=== PATIENT | male | born 1980 | race Caucasian/White ===

== ENCOUNTER 2020-06-17 14:00 | Emergency (ER) | payer OTHER, SELFPAY ==
[2020-06-17 14:10] VITALS: BP 123/69; PULSE 76; RESP 20; TEMP 36.8; O2SAT 99
--- NOTE | 2020-06-17 14:30 | ED.GENADULT ---
HPI - General Adult General Chief complaint: Unspecified <VIRIDIANA Maxwell Last Filed: 06/17/20 15:42> Stated complaint: dizzy/vomiting x 1.5 mo/weakness <VIRIDIANA Maxwell Last Filed: 06/17/20 15:42> Time Seen by Provider: 06/17/20 14:15 <VIRIDIANA Maxwell Last Filed: 06/17/20 15:42> Source: patient and family <VIRIDIANA Maxwell Last Filed: 06/17/20 15:42> Mode of arrival: ambulatory <VIRIDIANA Maxwell Last Filed: 06/17/20 15:42> Limitations: no limitations <VIRIDIANA Maxwell Last Filed: 06/17/20 15:42> History of Present Illness HPI narrative: Patient is a 47-year-old male who presents to emergency department for evaluation of intermittent nausea and vomiting over the course of the last month patient denies any pain or similar occurrence in the past has not been seen for this complaint on arrival is in the room in no distress has not taken anything for his symptoms has seen primary care for this complaint has not taken anything for his symptoms <VIRIDIANA Maxwell Last Filed: 06/17/20 15:42> Related Data Home medications: Home Medications Medication Instructions Recorded Confirmed aspirin 81 06/17/20 atorvastatin 80 06/17/20 buspirone 5 mg 06/17/20 carvedilol 6.25 06/17/20 clopidogrel 75 06/17/20 isosorbide mononitrate 60 mg PO 06/17/20 lisinopril 5 06/17/20 <VIRIDIANA Maxwell Last Filed: 06/17/20 15:42> Allergies/adverse reactions: Allergies Allergy/AdvReac Type Severity Reaction Status Date / Time No Known Allergies Allergy Verified 06/17/20 14:17 <VIRIDIANA Maxwell Last Filed: 06/17/20 15:42> Review of Systems Review of Systems: All systems reviewed & are unremarkable except as noted in HPI and below <VIRIDIANA Maxwell Last Filed: 06/17/20 15:42> PMFSH Past Medical History Medical History: Medical History (Updated 06/17/20 @ 15:41 by Eric Waldron PA-C) Coronary artery disease <Eric Waldron PA-C - Last Filed: 06/17/20 15:42> Surgical History Surgical History: Surgical History (Updated 06/17/20 @ 14:33 by Eric Waldron PA-C) History of coronary artery stent placement <Eric Waldron PA-C - Last Filed: 06/17/20 15:42> Social History Social History: Social History (Updated 06/17/20 @ 14:34 by Eric Waldron PA-C) Smoking status: Current every day smoker Gender identity (if verbalized by the patient): Male <Eric Waldron PA-C - Last Filed: 06/17/20 15:42> Exam Narrative: Exam Narrative: GENERAL: Well-appearing, well-nourished, and in no acute distress. HEAD: Normocephalic, atraumatic. EYES: PERRLA and EOMI. ENT: Nares clear, no rhinorrhea or epistaxis. Mucous membranes moist. CHEST: Clear to auscultation. No respiratory distress. No wheezes rales or rhonchi HEART: Regular rate and rhythm. No murmur heard. Normal peripheral pulses. ABDOMEN: Soft, nontender, nondistended EXTREMITIES: Normal range of motion. No edema. SKIN: Warm, dry, no rash. NEURO: No focal deficits. Alert and oriented x3. PSYCH: Normal mood and affect. <Eric Waldron PA-C - Last Filed: 06/17/20 15:42> Course Course Emergency Course: Patient in the room in no distress aware of case findings treatment plan and diagnosis agreeing to follow-up as directed or to return if symptoms worsen or concerns. Patient without high risk changes in the blood work given medications with relief will be given a GI consult as well as advised to follow primary care and given reasons to return <Eric Waldron PA-C - Last Filed: 06/17/20 15:42> Vital Signs Vital signs: Vital Signs Temperature 98.2 F 06/17/20 14:10 Pulse Rate 76 06/17/20 14:10 Respiratory Rate 20 06/17/20 14:10 Blood Pressure 123/69 06/17/20 14:10 Pulse Oximetry 99 06/17/20 14:10 Temperature 98.2 F 06/17/20 14:10 Pulse Rate 76 06/17/20 14:10 Re
[2020-06-17 14:41] LABS: Basophils Absolute Auto 0.1 K/mm3 (0.0-0.1); Basophils Percent Auto 1.2 % (0.2-1.2); Eosinophils Absolute Auto 0.4 K/mm3 (0-0.3); Eosinophils Percent Auto 6.1 % (0-4.4); Hematocrit 41.6 % (42.0-52.0); Immature Granulocyte Absolute 0.02 K/mm3 (0.00-0.031); Immature Granulocyte Percent A 0.3 % (0-0.5); Lymphocytes Absolute Auto 2.71 K/mm3 (0.9-3.2); Lymphocytes Percent Auto 39.1 % (18.3-44.2); Mean Corpuscular HGB Conc 33.7 g/dl (32-36); Mean Corpuscular Hemoglobin 28.2 pg (26-34); Mean Corpuscular Volume 83.7 fl (80-100); Mean Platelet Volume 9.1 fl (7.4-10.4); Monocytes Absolute Auto 0.5 K/mm3 (0.1-0.6); Monocytes Percent Auto 6.5 % (2.6-8.5); Neutrophils Absolute Auto 3.3 K/mm3 (1.3-6.7); Neutrophils Percent Auto 46.8 % (45.5-73.1); Platelet Count Result 306 k/mm3 (150-375); Red Blood Count 4.97 M/mm3 (4.6-6.20); Red Cell Distribution Width 12.5 % (11.5-14.5); White Blood Count 6.9 K/mm3 (4.5-10.0)
--- NOTE | 2020-06-17 14:44 | ECG_ITS ---
Measurements Intervals [place] Rate: 61 P: 66 [place]: 131 QRS: 71 QRSD: 92 T: 53 QT: 401 QTc: 407 Interpretive Statements SINUS RHYTHM WITH SINUS ARRHYTHMIA EARLY PRECORDIAL R/S TRANSITION BORDERLINE ECG Electronically Signed On 06-18-2020 10:02:45 CDT by Jose Thompson D.O.
[2020-06-17] MEDS: ONDANSETRON INJ 4 MG/2 ML VIAL IV PUSH (14:51)
[2020-06-17] MEDS: SODIUM CHLORIDE 0.9% IV 1,000 ML 999 ML IV CONT (14:51)
[2020-06-17] MEDS: FAMOTIDINE 20 MG/2 ML VIAL IV PUSH (14:51)
[2020-06-17 14:53] LABS: Alanine Aminotransferase 17 U/L (4-50); Albumin Level 4.4 g/dL (3.5-5.1); Alkaline Phosphatase 110 U/L (38-126); Anion Gap 12.9 mmol/L (7-16); Aspartate Amino Transferase 21 U/L (17-59); Bilirubin,Total 0.5 mg/dL (0.2-1.3); Blood Urea Nitrogen 20 mg/dL (9-20); Carbon Dioxide 28 mmol/L (22-30); Chloride 102 mmol/L (98-107); Estimated CRCL calculation 101 ml/min; Estimated Glomerular Filt Rate > 60; Glucose 122 mg/dL (75-110); Lipase 39 U/L (23-300); Potassium 3.9 mmol/L (3.4-5.0); Sodium 139 mmol/L (137-145)
== END 2020-06-17 15:57 | disposition home or self-care (01) ==
PROVIDERS: Emergency Medicine Emergency Medical Services; Emergency Provider General Practice; PCP Family Medicine
DX: R11.2 Nausea with vomiting, unspecified (principal); I25.10 Atherosclerotic heart disease of native coronary artery without angina pectoris; Z95.5 Presence of coronary angioplasty implant and graft; Z79.82 Long term (current) use of aspirin; F17.200 Nicotine dependence, unspecified, uncomplicated; R94.31 Abnormal electrocardiogram [ECG] [EKG]
CPT/HCPCS: 36415; 80053; 83690; 85025; 93005; 96361; 96374; 96375; 99284; J2405; J7030

== ENCOUNTER 2020-08-01 15:28 | Observation (INO) | payer OTHER, SELFPAY ==
[2020-08-01] VITALS (7 sets, daily range): BP systolic 121–154; BP diastolic 74–87; PULSE 57–79; RESP 16–20; TEMP 36.6–36.8; O2SAT 98–100; BMI 25.9
--- NOTE | ~2020-08-01 | XR_ITS ---
EXAMINATION: XR chest 2V EXAM DATE: 08/01/2020 17:08 INDICATION: Sharp left-sided chest pain and history myocardial infarction. Stent placement. TECHNIQUE: Frontal and lateral projections of the chest obtained and reviewed. Comparison is made to prior examination from 10/08/2015. FINDINGS: Moderate hyperinflation. The lungs are clear. There are no pleural effusions. The cardio mediastinal silhouette is within normal limits. There is no pneumothorax suspected. The bones and s oft tissues are unremarkable. There is no significant interval change. IMPRESSION: No acute cardiopulmonary findings. Reviewed, dictated and finalized at location A.
--- NOTE | 2020-08-01 15:47 | ECG_ITS ---
Measurements Intervals [place] Rate: 81 P: 75 [place]: 134 QRS: 78 QRSD: 98 T: 52 QT: 351 QTc: 409 Interpretive Statements SINUS RHYTHM EARLY PRECORDIAL R/S TRANSITION MINIMAL Q WAVES- INFERIOR LEADS BORDERLINE ECG Electronically Signed On 08-01-2020 16:04:29 CDT by Jose Thompson D.O.
[2020-08-01 16:11] LABS: Basophils Absolute Auto 0.1 K/mm3 (0.0-0.1); Basophils Percent Auto 0.9 % (0.2-1.2); Eosinophils Absolute Auto 0.6 K/mm3 (0-0.3); Eosinophils Percent Auto 6.1 % (0-4.4); Hematocrit 38.7 % (42.0-52.0); Hemoglobin 13.1 g/dL (14.0-18.0); Immature Granulocyte Absolute 0.02 K/mm3 (0.00-0.031); Immature Granulocyte Percent A 0.2 % (0-0.5); Lymphocytes Absolute Auto 3.98 K/mm3 (0.9-3.2); Lymphocytes Percent Auto 43.4 % (18.3-44.2); Mean Corpuscular HGB Conc 33.9 g/dl (32-36); Mean Corpuscular Hemoglobin 28.1 pg (26-34); Mean Platelet Volume 8.7 fl (7.4-10.4); Monocytes Absolute Auto 0.7 K/mm3 (0.1-0.6); Monocytes Percent Auto 7.3 % (2.6-8.5); Neutrophils Absolute Auto 3.9 K/mm3 (1.3-6.7); Neutrophils Percent Auto 42.1 % (45.5-73.1); Platelet Count Result 349 k/mm3 (150-375); Red Blood Count 4.66 M/mm3 (4.6-6.20); Red Cell Distribution Width 12.7 % (11.5-14.5); White Blood Count 9.2 K/mm3 (4.5-10.0)
[2020-08-01 16:21] LABS: INR 0.9
[2020-08-01 16:22] LABS: Partial Thromboplastin Time 27.3 SECONDS (22.3-36.8)
[2020-08-01 16:27] LABS: Anion Gap 9 mmol/L (8-16); Blood Urea Nitrogen 15 mg/dL (9-20); Calcium 9.2 mg/dL (8.4-10.2); Carbon Dioxide 25 mmol/L (22-30); Chloride 102 mmol/L (98-107); Estimated CRCL calculation 124 ml/min; Estimated Glomerular Filt Rate > 60; Glucose 103 mg/dL (75-110); Potassium 3.8 mmol/L (3.4-5.0); Sodium 136 mmol/L (137-145)
[2020-08-01 16:38] LABS: Troponin I < 0.012 ng/mL (0.000-0.034)
--- NOTE | 2020-08-01 17:18 | ED.CHESTPAIN ---
HPI - Chest Pain General Chief Complaint: Chest Pain Stated Complaint: CP Time Seen by Provider: 08/01/20 17:15 Source: RN notes reviewed History of Present Illness HPI narrative: Patient presents emergency department from home for chest pain. 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 Patient states he took a nitro at that time with resolution of his pain. States a history of previous LA and currently had a stent placed 2 years ago. States he used to see Dr. 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 He denies any fevers or chills shortness of breath abdominal pain nausea vomiting or any other symptoms Related Data Home Medications Medication Instructions Recorded Confirmed aspirin 81 06/17/20 atorvastatin 80 06/17/20 buspirone 5 mg 06/17/20 carvedilol 6.25 06/17/20 clopidogrel 75 06/17/20 isosorbide mononitrate 60 mg PO 06/17/20 lisinopril 5 06/17/20 famotidine [Pepcid] 20 mg PO BID 08/01/20 Allergies Allergy/AdvReac Type Severity Reaction Status Date / Time No Known Allergies Allergy Verified 08/01/20 15:53 Review of Systems Review of Systems: Narrative: Gen.: Denies fevers or chills ENT: Denies congestion Respiratory: Denies shortness of breath or cough CV: See HPI GI: Denies abdominal pain nausea, emesis or diarrhea Musculoskeletal: Denies back pain or muscle pain Neuro: Denies numbness, tingling, weakness or focal weakness Skin: Denies rash Except as documented, all other systems reviewed and negative [facility] Past Medical History Medical History (Updated 08/01/20 @ 17:54 by Eliud Farah DO) Coronary artery disease Surgical History Surgical History (Updated 06/17/20 @ 14:33 by Eric Waldron PA-C) History of coronary artery stent placement Social History Social History (Updated 06/17/20 @ 14:34 by Eric Waldron PA-C) Smoking status: Current every day smoker Gender identity (if verbalized by the patient): Female Exam Narrative: Exam Narrative: APPEARANCE: No acute distress, nontoxic, resting in bed EYES: EOMI HEENT: Normocephalic, atraumatic, OMM RESPIRATORY: No respiratory distress Clear to auscultation bilaterally with no rhonchi wheezing or rales. CARDIOVASCULAR: Regular rate and rhythm without murmurs rubs or gallops. ABDOMINAL: Soft, nontender, nondistended, no rebound or guarding MUSCULOSKELETAl: Moves all extremities. No clubbing, cyanosis or edema. NEURO: Awake and alert. Following commands, speech normal, no focal deficits SKIN:: Warm, dry. No rashes lesions or abrasions PSYCHIATRIC: Normal affect/mood, Course Course Emergency Course: Discussed with Dr. Méndez presentation work-up. Agrees with admission of the chest pain center Discussed with patient and family results of workup and diagnosis. Discussed need for admission. Patient and family understand and agree to current treatment plan Vital Signs Vital signs: Vital Signs Temperature 98.3 F 08/01/20 15:48 Pulse Rate 79 08/01/20 15:48 Respiratory Rate 16 08/01/20 15:48 Blood Pressure 131/74 08/01/20 15:48 Pulse Oximetry 99 08/01/20 15:48 Temperature 98.3 F 08/01/20 15:48 Pulse Rate 79 08/01/20 15:48 Respiratory Rate 16 08/01/20 15:48 Blood Pressure 131/74 08/01/20 15:48 Pulse Oximetry 99 08/01/20 15:48 MDM - Chest Pain Lab Data Result diagrams: 08/01/20 16:00 08/01/20 16:00 Labs: Lab Results 08/01/20 08/01/20 08/01/20 Range/Units 16:00 16:00 16:00 WBC 9.2 (4.5-10.0) K/mm3 RBC 4.66 (4.6-6.20) M/mm3 Hgb 13.1 L (14.0-18.0) g/dL Hct 38.7 L (42.0-52.0) % MCV 83.0 (80-100) fl MCH 28.1 (26-34) pg MCHC 33.9 (32-36) g/dl RDW 12.7 (11.5-14.5) % Plt Count 349 (150-375) k/mm3 MPV 8.7 (7.4-10.4) fl Immature Gran % (Auto) 0.2 (0-0.5) % Neut % (Auto) 42.1 L
[2020-08-01 19:12] LABS: Cholesterol 141 mg/dL (0-200); HDL Direct 34 mg/dL; Triglycerides 115 mg/dL (<150)
[2020-08-01 19:22] LABS: LDL Cholesterol Direct 82 mg/dL
[2020-08-01 19:23] LABS: Troponin I < 0.012 ng/mL (0.000-0.034)
--- NOTE | 2020-08-01 20:50 | ECG_ITS ---
Measurements Intervals [place] Rate: 56 P: 61 [place]: 146 QRS: 58 QRSD: 112 T: 70 QT: 418 QTc: 406 Interpretive Statements SINUS BRADYCARDIA RSR' IN V1 OR V2, CONSIDER RIGHT VENTRICULAR HYPERTROPHY OR RIGHT VCD MINIMAL Q WAVES- INFERIOR LEADS BASELINE ARTIFACT- I, II, III, AVL BORDERLINE ECG Electronically Signed On 08-02-2020 7:02:37 CDT by Jose Thompson D.O.
[2020-08-01] MEDS: FAMOTIDINE 20 MG TABLET PO (21:41)
[2020-08-01] MEDS: carvediloL 6.25 MG TABLET PO (21:42)
[2020-08-01 22:25] LABS: Troponin I < 0.012 ng/mL (0.000-0.034)
[2020-08-02] VITALS (7 sets, daily range): BP systolic 121–131; BP diastolic 62–72; PULSE 45–63; RESP 14–15; TEMP 35.9–36.6; O2SAT 98–99
[2020-08-02] MEDS: ATORVASTATIN 40 MG TABLET 80 MG PO (09:43)
[2020-08-02] MEDS: CLOPIDOGREL BISULFATE 75 MG TABLET PO (09:43)
[2020-08-02] MEDS: ASPIRIN 81 MG ENTERIC TABLET PO (09:43)
[2020-08-02] MEDS: lisinopriL 5 MG TABLET PO (09:44)
[2020-08-02] MEDS: ISOSORBIDE MONONITRATE 15 MG TAB.ER.24H PO (09:44)
[2020-08-02] MEDS: FAMOTIDINE 20 MG TABLET PO (09:44)
--- NOTE | 2020-08-02 09:47 | PC.NURSE ---
MORNING COREG DOSE HELD DUE TO HR OF 48. WILL NOTIFY DR. POOL.
--- NOTE | 2020-08-02 10:44 | PC.NURSE ---
DR. POOL HERE TO SEE PT. NOTIFIED OF HELD AM COREG DOSE. ORDERS RECEIVED TO CHECK TROPONIN AND EKG NOW AND REPORT ANY ABNORMALS. CARE COORDINATION HAS BEEN HERE TO SEE PT. HAS SMOKING CESSATION PAPERWORK AT BEDSIDE TABLE. DENIES PAIN OR SOB.
--- NOTE | 2020-08-02 10:53 | PM.IMHP ---
H&P: HPI History of Present Illness Date/Time: date of /10/20 10:53 Chief complaint: chest pain Narrative: Geovanny Gallardo is a 39 year old male with past medical history of heart attack and stents couple years ago [facility], hypertension, active tobacco use and family history for CAD with his dad had open-heart surgery in his 40s who presents with intermittent central chest pain radiating to the left arm, sharp, no aggravating or relieving factors and last for few seconds. Denies shortness of breath, dizziness, fever, chills, nausea, vomiting, cough. States that the pain was relieved by nitroglycerin. He follows up with cardioplegia [facility] and apparently has a stress test and echo sit up in August 2020. Patient states he is under a lot of stress at work because of poor working conditions and he continues to smoke cigarettes. initial EKG shows sinus rhythm small Q-waves in inferior leads. The repeat EKG shows ST elevation in inferior leads. However without any reciprocal changes. All troponins negative. Patient had no recurrence of chest pain. Review of Systems Review of Systems: All systems reviewed & are unremarkable except as noted in HPI and below Constitutional: Constitutional: Denies chills, Denies fatigue, Denies fever(s), Denies headache(s) and Denies snoring Eyes: Eyes: Denies eye discharge and Denies loss of vision ENT: Denies dizziness, Denies headache(s), Denies nasal discharge and Denies sore throat Cardiovascular: Cardiovascular: Reports as per HPI, Reports chest pain, Denies syncope, Denies rapid heart rate, Denies leg edema, Denies dyspnea, Denies dyspnea on exertion, Denies orthopnea and Denies paroxysmal nocturnal dyspnea Respiratory: Respiratory: Denies chest congestion, Denies cough, Denies dyspnea, Denies dyspnea on exertion, Denies snoring and Denies wheezing Gastrointestinal: Gastrointestinal: Denies abdominal pain, Denies diarrhea, Denies nausea and Denies vomiting Genitourinary: Genitourinary: Denies hematuria, Denies dysuria, Denies flank pain and Denies urinary frequency Musculoskeletal: Musculoskeletal: Denies myalgias, Denies arthralgias and Denies joint swelling Neurologic: Denies Abnormal speech present, Denies dizziness, Denies syncope, Denies headache(s), Denies focal weakness and Denies loss of vision Psychiatric: Psychiatric: Denies anxiety and Denies depression Endocrine: Endocrine: Denies cold intolerance, Denies fatigue and Denies heat intolerance Hematologic/Lymphatic: Hematologic/Lymphatic: Denies easy bleeding and Denies easy bruising Allergic/Immunologic: Allergic/Immunologic: Denies urticaria and Denies wheezing PMFSH Past Medical History Medical History Coronary artery disease Surgical History Surgical History History of coronary artery stent placement Family History Family History Father Myocardial infarct Hx of heart artery stent Hx of CABG Social History Social History Smoking packs per day: 1 Smoking cigarettes per day: 20.0 Smoking status: Current every day smoker Tobacco type: cigarettes Second hand tobacco smoke exposure: Yes Alcohol intake: never Substance use: never Substance use type: does not use Living arrangements: with family Additional living arrangements comments: lives with , mother, and children Gender identity (if verbalized by the patient): Male Spiritual care concerns: No Meds Home Medications and Allergies Home Medications Medication Instructions Recorded Confirmed Type aspirin 81 mg PO DAILY 06/17/20 08/01/20 History atorvastatin 80 mg PO DAILY 06/17/20 08/01/20 History buspirone 5 mg PO TID PRN 06/17/20 08/01/20 History carvedilol 6.25 mg PO BID 06/17/20
--- NOTE | 2020-08-02 11:00 | ECG_ITS ---
Measurements Intervals [place] Rate: 54 P: 60 SD: 150 QRS: 65 QRSD: 98 T: 54 QT: 411 QTc: 390 Interpretive Statements SINUS BRADYCARDIA RSR' IN V1 OR V2, CONSIDER RIGHT VENTRICULAR HYPERTROPHY OR RIGHT VCD MINIMAL Q WAVES- INFERIOR LEADS ST ELEVATION IN DIFFUSE LEADS- PROBABLY EARLY REPOLARIZATION BORDERLINE ECG Electronically Signed On 08-02-2020 11:19:42 CDT by Jose Thompson D.O.
[2020-08-02 11:34] LABS: Troponin I 0.014 ng/mL (0.000-0.034)
--- NOTE | 2020-08-02 11:44 | PC.NURSE ---
RESULTS OF TROPONIN AND EKG CALLED TO BRENDAN WARREN NP.
--- NOTE | 2020-08-02 12:20 | PC.NURSE ---
DR. POOL AWARE OF TROPONIN RESULT AND EKG RESULT. ORDERS RECEIVED FOR PT. TO DISCHARGE HOME.
--- NOTE | 2020-08-02 13:00 | PC.NURSE ---
HAS RECEIVED FLU VACCINE Shirley LARSON. REVIEWED ALL DISCHARGE INSTRUCTIONS W/ PT. QUESTIONS ANSWERED AND VOICED UNDERSTANDING OF DISCHARGE INSTRUCTIONS. COPY GIVEN. DENIES CP OR SOB. DISCHARGED HOME, OUT AMBULATORY W/ AT SIDE WITH ALL PERSONAL BELONGINGS AND DISCHARGE PACKET. NO DISTRESS NOTED.
== END 2020-08-02 13:00 | disposition home or self-care (01) ==
LOC: ANHED 18:10 → ANHCPC 20:08
PROVIDERS: Admitting Provider Internal Medicine Cardiovascular Disease; Emergency Provider Emergency Medicine; Visit Provider Internal Medicine Cardiovascular Disease
DX: R07.89 Other chest pain (principal); I25.10 Atherosclerotic heart disease of native coronary artery without angina pectoris; F17.210 Nicotine dependence, cigarettes, uncomplicated; I25.2 Old myocardial infarction; Z23 Encounter for immunization; Z95.5 Presence of coronary angioplasty implant and graft
CPT/HCPCS: 36415; 71046; 80048; 80061; 84484; 85025; 85610; 85730; 90471; 90686; 93005; 99285; A9270; G0008; G0378

== ENCOUNTER 2020-10-03 09:00 | Outpatient (RCR) | payer OTHER, SELFPAY ==
[2020-09-13 12:28] VITALS: PULSE 89
--- NOTE | 2020-09-19 10:36 | PCCPR ---
Addendum entered by Delfina Rosas RN 10/11/20 08:12: 10/08/20 Prakash no call or show. Message left requesting he call us back for his plan for return. He had told us he is scheduled to redu a previously placed stents from a few years alexa that is bent. Original Note: Absent Prakash called this am states he has an upset stomach and would not be in today. He thought he ate too much.
--- NOTE | 2020-10-16 08:30 | PCCPR ---
Absent with out call or show Left a message for Prakash requesting he give us a call back to discuss his plan for return. He had mentioned on his last visit he was supposed to have an additional cath procedure to repair a bent stent on 10/15/20. Reminded him we need to clarify his plan to return or to dc from the program.
--- NOTE | 2020-10-22 13:44 | PCCPR ---
Left message asking Prakash to call us back for an update on his plan to return.
--- NOTE | 2020-11-13 15:21 | PCCPR ---
LMORx3, if we do not hear from pt by end of 11/14, DC from program.
== END 2020-11-14 11:43 | disposition home or self-care (01) ==
LOC: ANHCPREHAB 09:00
PROVIDERS: Visit Provider Internal Medicine Cardiovascular Disease
DX: Z95.5 Presence of coronary angioplasty implant and graft (principal)
CPT/HCPCS: 93798

== ENCOUNTER 2020-12-14 09:58 | Emergency (ER) | payer OTHER, SELFPAY ==
--- NOTE | ~2020-12-14 | XR_ITS ---
EXAMINATION: XR chest 2V EXAM DATE: 12/14/2020 10:27 INDICATION: Left-sided chest pain, anterior chest pain. History of acid reflux. TECHNIQUE: Frontal and lateral projections of the chest obtained and reviewed. Comparison is made to prior examination from 08/01/2020. FINDINGS: The lungs are clear. There are no pleural effusions. The cardiomediastinal silhouette is within normal limits. There is no pneumothorax suspected. The bones and soft tissues are unremarkab le. There are coronary artery stents. IMPRESSION: No acute cardiopulmonary findings. Reviewed, dictated and finalized at location A. L PREPAREDNESS OFFICER
--- NOTE | 2020-12-14 10:01 | ECG_ITS ---
Measurements Intervals [place] Rate: 68 P: 60 [place]: 137 QRS: 61 QRSD: 102 T: 66 QT: 382 QTc: 409 Interpretive Statements SINUS RHYTHM INCOMPLETE RIGHT BUNDLE BRANCH BLOCK MINIMAL Q WAVES- INFERIOR LEADS BASELINE ARTIFACT- I, II, AVR, V4 BORDERLINE ECG Electronically Signed On 12-14-2020 10:09:12 BAD WORK GATHERER by Jose Thompson D.O.
[2020-12-14 10:02] VITALS: BP 156/74; PULSE 70; RESP 17; TEMP 36.7; O2SAT 99
[2020-12-14 10:17] LABS: Basophils Absolute Auto 0.1 K/mm3 (0.0-0.1); Basophils Percent Auto 1.1 % (0.2-1.2); Eosinophils Absolute Auto 0.2 K/mm3 (0-0.3); Eosinophils Percent Auto 3.1 % (0-4.4); Hematocrit 39.2 % (42.0-52.0); Hemoglobin 12.6 g/dL (14.0-18.0); Immature Granulocyte Absolute 0.02 K/mm3 (0.00-0.031); Immature Granulocyte Percent A 0.3 % (0-0.5); Lymphocytes Absolute Auto 2.41 K/mm3 (0.9-3.2); Lymphocytes Percent Auto 34.4 % (18.3-44.2); Mean Corpuscular HGB Conc 32.1 g/dl (32-36); Mean Corpuscular Hemoglobin 25.7 pg (26-34); Mean Platelet Volume 8.5 fl (7.4-10.4); Monocytes Absolute Auto 0.6 K/mm3 (0.1-0.6); Monocytes Percent Auto 8.6 % (2.6-8.5); Neutrophils Absolute Auto 3.7 K/mm3 (1.3-6.7); Neutrophils Percent Auto 52.5 % (45.5-73.1); Platelet Count Result 336 k/mm3 (150-375); Red Cell Distribution Width 12.5 % (11.5-14.5)
[2020-12-14 10:28] LABS: INR 0.8; Prothrombin Time 12.1 Seconds (11.1-14.7)
[2020-12-14 10:29] LABS: Partial Thromboplastin Time 27.4 SECONDS (22.3-36.8)
[2020-12-14 10:30] LABS: Anion Gap 8 mmol/L (8-16); Blood Urea Nitrogen 24 mg/dL (9-20); Calcium 9.4 mg/dL (8.4-10.2); Carbon Dioxide 26 mmol/L (22-30); Chloride 103 mmol/L (98-107); Estimated CRCL calculation 139 ml/min; Estimated Glomerular Filt Rate > 60; Glucose 188 mg/dL (75-110); Potassium 4.4 mmol/L (3.4-5.0); Sodium 137 mmol/L (137-145)
[2020-12-14 10:42] LABS: Troponin I < 0.012 ng/mL (0.000-0.034)
[2020-12-14 11:22] VITALS: BP 138/89; PULSE 79
--- NOTE | 2020-12-14 11:47 | ED.CHESTPAIN ---
HPI - Chest Pain General Chief Complaint: Chest Pain Stated Complaint: lt chest pain, lt neck pain Time Seen by Provider: 12/14/20 10:22 Source: patient Mode of arrival: ambulatory Limitations: no limitations History of Present Illness HPI narrative: This is a 40-year-old male that presents to the emergency department for intermittent left-sided chest pain for the last couple of months. Reports the pain starts in his throat and is sharp in nature. It then radiates to the left side of his chest. It is intermittent and lasts very briefly. It does happen several times daily. He saw his mechanical car checker yesterday. His mechanical car checker is Dr. Agustin at [place]. Reports recent stent place in August of last year. Reports he is trying to get scheduled for a upper endoscopy, but his mechanical car checker is worried about him being off of his blood thinners in order to do so. Denies fever, cough, shortness of breath, or lower extremity edema. Related Data Home Medications Medication Instructions Recorded Confirmed aspirin 81 mg PO DAILY 06/17/20 09/13/20 atorvastatin 80 mg PO DAILY 06/17/20 09/13/20 buspirone 5 mg PO TID PRN 06/17/20 09/13/20 carvedilol 6.25 mg PO BID 06/17/20 09/13/20 clopidogrel 75 mg PO DAILY 06/17/20 09/13/20 lisinopril 5 mg PO DAILY 06/17/20 09/13/20 amlodipine [Norvasc] 2.5 mg PO DAILY 09/13/20 09/13/20 isosorbide mononitrate 30 mg PO DAILY 09/13/20 09/13/20 Allergies Allergy/AdvReac Type Severity Reaction Status Date / Time No Known Allergies Allergy Verified 08/01/20 15:53 Review of Systems Review of Systems: Narrative: CONSTITUTIONAL: Denies fever CARDIOVASCULAR: Reports chest pain. Denies palpitations, or edema. RESPIRATORY: Denies cough or dyspnea. All systems reviewed & are unremarkable except as noted in HPI and below PMFSH Past Medical History Medical History (Updated 12/14/20 @ 14:45 by Kiana Harrison PA-C) Coronary artery disease Surgical History Surgical History History of coronary artery stent placement Family History Family History (Updated 09/13/20 @ 12:03 by Sarah Smith RN) Father Hx of heart artery stent Myocardial infarct Hx of CABG Cancer Mother Brain cancer Social History Social History Smoking packs per day: 1 Smoking cigarettes per day: 20.0 Smoking status: Former smoker Tobacco type: cigarettes Second hand tobacco smoke exposure: Yes Smoking end date: 08/07/20 Alcohol intake: never Substance use: never Substance use type: does not use Additional living arrangements comments: lives with , mother, and children Gender identity (if verbalized by the patient): Male Spiritual care concerns: No Exam Narrative: Exam Narrative: GENERAL: Well-appearing, well-nourished, and in no acute distress. HEAD: Normocephalic, atraumatic. EYES: EOMI. ENT: Mucous membranes moist. Oropharynx without tonsillar hypertrophy exudate or other lesions. NECK: Supple. No adenopathy or masses. No carotid bruits or JVD CHEST: Clear to auscultation. No respiratory distress. No wheezes rales or rhonchi HEART: Regular rate and rhythm. No murmur heard. Normal peripheral pulses. EXTREMITIES: Normal range of motion. No edema. SKIN: Warm, dry, no rash. NEURO: No focal deficits. Alert and oriented x3. PSYCH: Normal mood and affect Course Consultations Consultation #1: Spoke with patient's mechanical car checker, Dr. Agustin about patient work-up. Feels comfortable with further outpatient evaluation. Date: 12/14/20 Time: 14:44 Vital Signs Vital signs: Vital Signs Temperature 98.1 F 12/14/20 10:02 Pulse Rate 70 12/14/20 10:02 Respiratory Rate 17 12/14/20 10:02 Blood Pressure 156/74 H 12/14/20 10:02 Pulse Oximetry 99 12/14/20 10:02 Temperature 98.1 F 12/14/20 10:02 Pulse Rate 75 12/14/20 14:16 Respiratory Rate 13 12/14/20 14:16 [place]oo
[2020-12-14 12:12] VITALS: BP 139/79; PULSE 84; PULSE 87; RESP 16; O2SAT 99
[2020-12-14 13:28] LABS: Troponin I < 0.012 ng/mL (0.000-0.034)
[2020-12-14] MEDS: BELLADONNA ALK/PHENOB ELIX 10 ML, MAG HYDROX/ALUMINUM HYD/SIMETH 30 ML, LIDOCAINE HCL 2... PO (14:11)
[2020-12-14 14:16] VITALS: BP 147/81; PULSE 75; RESP 13; O2SAT 98
== END 2020-12-14 14:30 | disposition home or self-care (01) ==
PROVIDERS: Emergency Provider Emergency Medicine
DX: R07.89 Other chest pain (principal); I25.10 Atherosclerotic heart disease of native coronary artery without angina pectoris; Z95.5 Presence of coronary angioplasty implant and graft; Z79.82 Long term (current) use of aspirin; Z87.891 Personal history of nicotine dependence; I45.10 Unspecified right bundle-branch block
CPT/HCPCS: 36415; 71046; 80048; 84484; 85025; 85610; 85730; 93005; 99284; A9270

== ENCOUNTER 2020-12-31 08:41 | Outpatient (CLI) | payer OTHER, SELFPAY ==
--- NOTE | ~2020-12-31 | XR_ITS ---
EXAMINATION: XR barium swallow DATE: 12/31/2020 09:57 INDICATION: Odynophagia TECHNIQUE: The patient drank thick barium, gas-producing crystals, and thin barium. Fluoroscopy of th e hypopharynx and esophagus was performed. Fluoroscopy exposure time was 1.8 minutes. The DAP for thi s procedure was 11.42 Gycm2. COMPARISON: None. FINDINGS: There is no mass or stricture of the esophagus. Esophageal motility is normal. There is a s mall sliding hiatal hernia. There was no gastroesophageal reflux with provocative maneuvers. IMPRESSION: 1. Small sliding hiatal hernia. Reviewed, dictated and finalized at location A. TAL COMMUNITY MANAGER
== END 2020-12-31 08:42 | disposition home or self-care (01) ==
DX: R13.10 Dysphagia, unspecified (principal); K44.9 Diaphragmatic hernia without obstruction or gangrene
CPT/HCPCS: 74220